=== PATIENT | female | born 1995 | race Caucasian/White ===

== ENCOUNTER 2018-12-04 20:02 | Outpatient (REF) | payer OTHER, SELFPAY ==
--- NOTE | 2018-12-04 15:00 | PAPFT_PTH ---
PATIENT: Liana Chu LOC: [facility] U#:[id number] AGE/SX: 23/F ROOM: RE12/04/[address]: Che Radford : 1995 BED: DIS: 12/04/2018 SPEC #: [id number] RECD: 12/05/18 13:05 STATUS: CINDY REAbdulkadir #: [id number] JESSIKA: 12/04/18 15:[address]: Che Radford DEPT: [facility] Cytology RECD BY: Ella Storey Tissues: 1 - CX/ENDOCX FOR PAP SMEARS Procedures: PAP THIN PREP/[facility] Screening Comments: [id number]
== END 2018-12-04 20:22 ==
LOC: NCHCN 20:02
PROVIDERS: PCP Nurse Practitioner; Visit Provider Nurse Practitioner
DX: Z00.00 Encounter for general adult medical examination without abnormal findings (principal); Z12.4 Encounter for screening for malignant neoplasm of cervix; Z01.419 Encounter for gynecological examination (general) (routine) without abnormal findings
CPT/HCPCS: 88142

== ENCOUNTER 2020-06-10 02:43 | Outpatient (CLI) | payer OTHER, SELFPAY ==
--- NOTE | 2020-06-10 | DI.MRI_ITS ---
EXAM: MR BRAIN ORBIT FACE NECK WO/W CLINICAL HISTORY: VISION, DISORDER,H53.9 TECHNIQUE: Multiplanar multisequence MRI of the brain was performed of the entire brain. Additional sequences were performed through the orbits.. CONTRAST MATERIAL: IV Contrast: 11 mL of Magnevist contrast administered. COMPARISON: No exams were available for comparison FINDINGS: VENTRICLES AND EXTRA AXIAL SPACES: Normal in size and morphology for the patient's age. HEMORRHAGE: None. CEREBRAL PARENCHYMA: No focus of restricted diffusion to suggest acute infarct. No space-occupying le micheal identified. MIDLINE SHIFT: None. BRAINSTEM/CEREBELLUM: Normal. VISUALIZED PARANASAL SINUSES/MASTOIDS: Clear. Pituitary: Normal in size. ORBITS: The anterior and posterior chambers of the globes are intact. The retrobulbar fat is unremark able. Extraocular muscles are unremarkable. OPTIC NERVES: The intracranial and extracranial portions of the optic nerves are within normal limits . Optic chiasm is within normal limits. No MRI evidence of optic neuritis identified. SOFT TISSUES: The superior opthalmic veins are unremarkable. Remaining soft tissues are unremarkable. Vascular flow voids: Intact. No abnormal areas of enhancement are seen. IMPRESSION: Normal MRI of the brain and orbits DATA REPOSITORY:
[2020-06-10] MEDS: Normal Saline Flush 10 ML SYR IVP (15:10)
[2020-06-10] MEDS: Gadoterate meglumine 20 ML VIAL 11 ML IVP (15:11)
== END 2020-06-10 03:03 ==
PROVIDERS: PCP Nurse Practitioner; Visit Provider Nurse Practitioner Family
DX: H53.8 Other visual disturbances (principal)
CPT/HCPCS: 70553; 70543

== ENCOUNTER 2020-07-23 13:17 | Outpatient (REF) | payer OTHER, SELFPAY ==
[2020-07-24 11:01] LABS: COVID-19 RT-PCR UVMMC Result Negative (Negative)
== END 2020-07-23 13:37 ==
LOC: LBO 13:17
PROVIDERS: PCP Nurse Practitioner; Visit Provider Nurse Practitioner Family
DX: Z11.59 Encounter for screening for other viral diseases (principal)
CPT/HCPCS: U0003

== ENCOUNTER 2020-11-23 01:14 | Outpatient (CLI) | payer OTHER, SELFPAY ==
--- NOTE | 2020-11-23 | DI.US_ITS ---
EXAM: US RENAL CLINICAL HISTORY: KIDNEY CALCULUS,N20.0 TECHNIQUE: Ultrasound performed using standard protocol. COMPARISON: No exams were available for comparison FINDINGS: Renal ultrasound was performed according to the usual protocol. Kidneys are normal in size and shape and there is no evidence of a renal mass, hydronephrosis, or nephrolithiasis. Urinary bladder appea rs normal with pre and post void urinary bladder measurements 232 cc and 5 cc respectively. Ureteral jets were noted bilaterally. IMPRESSION: Negative renal ultrasound. DATA REPOSITORY:
== END 2020-11-23 01:34 ==
PROVIDERS: PCP Nurse Practitioner Family; Visit Provider Nurse Practitioner Family
DX: Z87.442 Personal history of urinary calculi (principal)
CPT/HCPCS: 76770

== ENCOUNTER 2021-05-20 19:29 | Outpatient (REF) | payer OTHER, SELFPAY ==
[2021-05-20 21:08] LABS: Bilirubin Negative (Negative); Blood Negative (Negative); Clarity Clear (Clear); Glucose Negative (Negative); Ketones Negative (Negative); Leukocyte Esterase Negative (Negative); Nitrite Negative (Negative); Urobilinogen 0.2 EU/dL (Up TO 0.2)
== END 2021-05-20 19:30 | disposition home or self-care (01) ==
LOC: NCHCN 19:29
PROVIDERS: PCP Nurse Practitioner Family; Visit Provider Family Medicine
DX: N39.0 Urinary tract infection, site not specified (principal); L70.9 Acne, unspecified; F41.9 Anxiety disorder, unspecified
CPT/HCPCS: 81003

== ENCOUNTER 2022-10-30 14:50 | Outpatient (REF) | payer OTHER, SELFPAY ==
--- NOTE | 2022-10-30 10:10 | PAPFT_PTH ---
PATIENT: Liana Chu LOC: [facility] U#:[id number] AGE/SX: 27/F ROOM: RE10/30/[address]: Dana Gonzalez : 1995 BED: DIS: 10/30/2022 SPEC #: [id number] RECD: 10/30/22 17:46 STATUS: CINDY REQ #: [id number] JESSIKA: 10/30/22 10:[address]: Dana Gonzalez DEPT: [facility] Cytology RECD BY: Ella Storey ENTERED: 10/30/22 17:47 SP TYPE: PAPFT OTHR DR: Ilana Harris Tissues: 1 - CX/ENDOCX FOR PAP SMEARS Procedures: PAP THIN PREP/[facility] Screening Comments: [id number] (CHLAMYDIA/GC)
[2022-10-31 13:56] LABS: Chlamydia Result Negative (Negative); GC Result Negative (Negative)
== END 2022-10-30 14:51 | disposition home or self-care (01) ==
LOC: NCHCN 14:50
PROVIDERS: PCP Nurse Practitioner Family; Visit Provider Family Medicine
DX: Z11.3 Encounter for screening for infections with a predominantly sexual mode of transmission (principal); Z12.4 Encounter for screening for malignant neoplasm of cervix; Z00.00 Encounter for general adult medical examination without abnormal findings; Z01.419 Encounter for gynecological examination (general) (routine) without abnormal findings
CPT/HCPCS: 87491; 87591; 88142